=== PATIENT | female | born 1990 | race Two or more races ===

== ENCOUNTER → 2025-04-08 | Outpatient (CLI) | payer MEDICAID, SELFPAY ==
--- NOTE | 2025-04-08 09:16 | XR_ITS ---
Examination: OB Transvaginal ultrasound of the pelvis, complete Technique: Transvaginal sonographic images pelvis performed using anderson scale imaging Exam date and time: April 08, 2025 0931 hours INDICATIONS: Vaginal bleeding and cramping beginning 3 days ago FINDINGS: Uterus 15.3 cm, CRL 6.5 cm corresponds to 12 weeks 6 days gestational age Reactive motion 160 BPM 8.6 x 0.7 x 3.5 cm subchorionic hemorrhage Right ovary 2.1 cm arterial flow Left ovary 4.1 cm arterial flow IMPRESSION: Viable intrauterine gestation 12 weeks 6 days, recommend continued short-term follow-up pelvic sonography given the large subchorionic hemorrhage.
== END | disposition home or self-care (01) ==
PROVIDERS: PCP Obstetrics & Gynecology; Referring Provider Obstetrics & Gynecology; Visit Provider Obstetrics & Gynecology
DX: O46.8X1 Other antepartum hemorrhage, first trimester (principal); Z3A.12 12 weeks gestation of pregnancy
CPT/HCPCS: 76817

== ENCOUNTER 2025-06-22 17:02 | Observation (INO) | payer SELFPAY ==
[2025-06-22 17:16] VITALS: BP 122/68; PULSE 81
--- NOTE | 2025-06-22 17:17 | XR_ITS ---
Examination: Complete OB ultrasound greater than 14 weeks Date and time of exam: June 22, 2025, 1804 hrs. Indications: Onset pelvic cramping today Findings: Viable intrauterine single fetus with single amniotic sac presentation breech Cardiac motion 145 BPM Placenta posterior grade 2 Umbilical cord insertion 3 vessel Amniotic fluid index adequate. spine maternal right. Cervix 5.0 cm. Right ovary 2.3 cm arterial flow. Left ovary obscured by bowel gas Composite estimated gestational age based on BPD, head circumference, abdominal circumference, femur length is 23 weeks 1 day, estimated weight 583.5 g. Survey of intracranial anatomy, spinal anatomy, abdominal anatomy, four-chamber heart performed with no abnormalities identified. Impression: Viable intrauterine gestation breech presentation.
[2025-06-22 17:26] VITALS: BP 122/68; PULSE 81; RESP 100; RESP 16; TEMP 36.6; BMI 26.4
[2025-06-22 17:27] VITALS: RESP 16; TEMP 36.6; O2SAT 100
[2025-06-22 17:33] LABS: Collection Type, Urine Clean Catch
[2025-06-22 18:06] LABS: Amorphous Crystals,Urine Present (Absent); Bilirubin,Urine Negative (Negative); Blood,Urine Negative (Negative); Clarity,Urine Turbid (Clear/Hazy); Color,Urine Yellow (Lt Yel-Yel); Glucose, Urine Negative (Negative); Ketones,Urine Negative (Negative); Leukocyte Esterase,Urine Negative (Negative); Nitrite,Urine Negative (Negative); PH,Urine 7.0 (5.0-7.0); Protein,Urine Negative (Neg - Trace); RBC,Urine < 1 /hpf (0-3); Specific Gravity,Urine 1.019 (1.001-1.035); Squamous Epithelial Cell,Urine 9 /hpf (0-5); Urobilinogen,Urine Negative mg/dL (0.0-1.0); WBC,Urine 1 /hpf (0-5)
== END 2025-06-22 20:25 | disposition home or self-care (01) ==
PROVIDERS: Admitting Provider Obstetrics & Gynecology; Visit Provider Obstetrics & Gynecology
DX: O26.892 Other specified pregnancy related conditions, second trimester (principal); Z3A.23 23 weeks gestation of pregnancy; R10.2 Pelvic and perineal pain; O32.1XX0 Maternal care for breech presentation, not applicable or unspecified
CPT/HCPCS: 59899; 76805; 81001